=== PATIENT | female | born 1995 | race Two or more races ===

== ENCOUNTER 2023-10-11 01:40 | Emergency (ER) | payer OTHER ==
[~2023-10-11] VITALS: Ht 165.1 cm; Wt 79.8 kg
[2023-10-11 04:14] LABS: HEMATOCRIT 35.9 % (36.0-45.00); HEMOGLOBIN 12.2 g/dL (12.0-15.00); MEAN CELL VOLUME 90.4 fL (80.00-100.00); MEAN CORPUSCULAR HEMOGLOBIN 30.7 pg (27.00-32.0); PLATELET COUNT 245 K/uL (150-450); RED BLOOD COUNT 3.97 M/uL (4.00-6.00); RED CELL DISTRIBUTION WIDTH 13.4 % (11.5-14.5)
[2023-10-11 05:33] LABS: CALCIUM 8.8 mg/dL (8.5-10.1); CREATININE SERUM 0.76 mg/dL (0.55-1.02); GFR 90.62; POTASSIUM 3.73 mEq/L (3.5-5.1)
== END 2023-10-11 06:16 | disposition home or self-care (01) ==
LOC: ER 01:41
DX: K52.9 Noninfective gastroenteritis and colitis, unspecified (principal); Z20.822 Contact with and (suspected) exposure to COVID-19